=== PATIENT | male | born 1995 | race Asian ===

== ENCOUNTER 2023-03-25 13:51 | Emergency (ER) | payer SELFPAY ==
--- NOTE | ~2023-03-25 | XR_ITS ---
EXAM: XR ankle LT min 3V DATE: 03/25/2023 14:27 HISTORY: fall while rock climbing,lateral pain and swelling . COMPARISON: None available. FINDINGS: Normal mineralization. No fracture or dislocation. No lytic or blastic lesion. Mild degene rative change at the tibiotalar joint. Achilles and plantar enthesopathy. Prominent os trigonum. No e rosion or periosteal change. Soft tissues within normal limits. IMPRESSION: No acute osseous finding in the left ankle. Reviewed, dictated and finalized at location K.
[2023-03-25 14:09] VITALS: BP 136/82; PULSE 99; RESP 18; TEMP 37.6; O2SAT 100
--- NOTE | 2023-03-25 14:23 | ED.LOWEXIN ---
HPI - Extremity Injury (Lower) General Chief Complaint: Extremity Injury, Lower Stated Complaint: Left Ankle Pain Time Seen by Provider: 03/25/23 14:24 Source: patient Mode of arrival: ambulatory Limitations: no limitations History of Present Illness HPI Narrative: 27-year-old male presented for complaint of left ankle pain and swelling after injury today. He states he fell approximately 6 ft off rock climbing wall, landing on the left foot. He did not take anything or apply ice, came directly to the clinic. He denies numbness, tingling, weakness. Ambulating with difficulty due to pain. Related Data Allergies Allergy/AdvReac Type Severity Reaction Status Date / Time No Known Allergies Allergy Verified 03/25/23 14:08 Review of Systems Review of Systems: CONSTITUTIONAL: Denies body aches, fever, chills EYES: Denies visual changes ENT: Denies rhinorrhea, congestion CARDIOVASCULAR: Denies chest pain, palpitations, or edema. RESPIRATORY: Denies cough or dyspnea. GASTROINTESTINAL: Denies abdominal pain, nausea, vomiting, or diarrhea. SKIN: Denies rash, itching, or wounds. MUSCULOSKELETAL: Left ankle pain, swelling NEUROLOGIC: Denies headache, numbness, tingling, or weakness. All systems reviewed & are unremarkable except as noted in HPI and below FORMERLY [facility] Past Medical History Medical History (Updated 03/25/23 @ 14:49 by Aileen Aguila, JANETH) No pertinent past medical history Comments At time of signature, I have reviewed and agree with nursing past medical, surgical, social and family history unless otherwise noted. Please see nursing chart for further information. There is no relevant family history pertinent to the presenting complaint Exam Narrative: GENERAL: Well-appearing, in no acute distress. HEAD: Normocephalic, atraumatic. EYES: PERRLA, conjunctivae clear NECK: Supple. CHEST: Speaks in full sentences. No respiratory distress. HEART: Regular rate and rhythm. Normal and equal peripheral pulses. EXTREMITIES: Left foot has normal strength and sensation, slightly limited range of motion at ankle, endorses pain with movement. Moderate lateral malleolus soft tissue swelling and mild ecchymosis. Tender to the anterior/lateral aspect of ankle. No open wounds or obvious deformity; pulse palpable and equal bilaterally, skin warm, dry, pink. Capillary refill less than 3 seconds. SKIN: Warm, dry, no rash. NEURO: Alert and oriented x3. PSYCH: Normal mood and affect Course Course Emergency Course: Patient is aware of diagnosis, understands and agrees to treatment plan. Anticipatory guidance given. Patient agrees to follow-up as directed and is aware of reasons to seek care at the emergency department. Portions of this record may have been created with voice recognition software Level of Care: Express Care Visit Vital Signs Vital signs: Vital Signs Temperature 99.6 F 03/25/23 14:09 Pulse Rate 99 03/25/23 14:09 Respiratory Rate 18 03/25/23 14:09 Blood Pressure 136/82 03/25/23 14:09 Pulse Oximetry 100 03/25/23 14:09 Oxygen Delivery Room Air 03/25/23 14:09 Temperature 99.6 F 03/25/23 14:09 Pulse Rate 99 03/25/23 14:09 Respiratory Rate 18 03/25/23 14:09 Blood Pressure 136/82 03/25/23 14:09 Pulse Oximetry 100 03/25/23 14:09 Oxygen Delivery Room Air 03/25/23 14:09 Reviewed Procedures Orthopedic Splinting/Casting left ankle: Splinting/Casting Date: 03/25/23 Lower Extremity Immobilizer: Jaime wrap MDM - Extremity Injury (Lower) MDM Narrative Medical decision making narrative: Results of x-ray reviewed with patient. Discussed physical exam findings. JAIME applied. Advised supportive measures and signs/symptoms to go to the ER. Pt is appropriate for outpt treatment and f/u. Differential Diagnosis Differential diagnosis: Likely ankle sprain and strain and ankle fracture Imaging Data Radiologist's impression: Patient: Too Cutler : 08
== END 2023-03-25 14:54 | disposition home or self-care (01) ==
PROVIDERS: Emergency Provider Nurse Practitioner Family
DX: S93.402A Sprain of unspecified ligament of left ankle, initial encounter (principal); W17.89XA Other fall from one level to another, initial encounter; Y93.31 Activity, mountain climbing, rock climbing and wall climbing
CPT/HCPCS: 73610; 99203; G0463